=== PATIENT | male | born 1975 | race Caucasian/White ===

== ENCOUNTER 2021-03-11 17:41 | Emergency (ER) | payer OTHER ==
[~2021-03-11 17:41] MED LIST: AMOXICILLIN500 MG PO; CLEOCIN300 MG PO; NAPROSYN375 MG PO; NAPROXEN500 MG PO
[2021-03-11] MEDS ORDERED: AUGMENTIN 875-1 EACH PO (20:02)
== END 2021-03-11 20:25 | disposition home or self-care (01) ==
LOC: FER 17:41
DX: K04.7 Periapical abscess without sinus (principal)
CPT/HCPCS: 99282

== ENCOUNTER 2022-02-06 15:47 | Emergency (ER) | payer OTHER ==
[~2022-02-06 15:47] MED LIST changes: +AUGMENTIN 875-1 EACH PO
[2022-02-06 17:59] LABS: BASOPHIL 0.4 % (0-2); EOSINOPHIL 0 % (0-5); HCT 51.2 % (42.0-52.0); HGB 18.2 g/dl (13.2-18.0); LYMPHOCYTE 2.6 % (15-48); MCH 30.2 pg (25.0-31.0); MCHC 35.5 g/dL (32.0-36.0); MONOCYTE 5.8 % (0-12); MPV 9.8 fL (6.0-9.5); NRBC 0; PLT 171 K/uL (150-400); RBC 6.02 M/uL (4.70-6.00); RDW 12.1 % (11.5-14.0); WBC 9.2 K/uL (4.0-10.5)
[2022-02-06 18:04] LABS: NEUTROPHIL 90.3 % (41-80)
[2022-02-06 18:21] LABS: LACTIC ACID 3.2 mmol/L (0.4-1.9)
[2022-02-06 18:48] LABS: ALBUMIN 4.5 g/dL (3.4-5.0); ALKALINE PHOSHATASE 109 U/L (46-116); ALT 135 U/L (16-63); AST 123 U/L (15-37); BILIRUBIN - TOTAL 0.8 mg/dL (0.2-1.0); BUN 10 mg/dL (7-18); BUN/CREAT RATIO (CALC) 10.8 RATIO; CHLORIDE 93 mmol/L (98-107); CO2 (BICARBONATE) 22 mmol/L (21-32); CREATININE 0.93 mg/dL (0.67-1.17); GLOBULIN (CALCULATION) 3.8 g/dL; GLUCOSE 287 mg/dL (74-106); LIPASE <10 U/L (73-393); TOTAL PROTEIN 8.3 g/dL (6.4-8.2)
[2022-02-06 19:41] LABS: BILIRUBIN NEGATIVE (NEGATIVE); BLOOD NEGATIVE Ery/uL (NEGATIVE); CLARITY CLEAR (CLEAR); COLOR YELLOW (YELLOW); GLUCOSE (U) 3+ mg/dL (NORMAL); LEUKOCYTES NEGATIVE Leu/uL (NEGATIVE); NITRITE NEGATIVE (NEGATIVE); PROTEIN NEGATIVE (NEGATIVE); SPECIFIC GRAVITY 1.015 (1.001-1.030); UROBILINOGEN 0.2 mg/dL (0.2-1.0)
[2022-02-06 19:47] LABS: AMPHETAMINES NEGATIVE (NEGATIVE); BARBITURATES NEGATIVE (NEGATIVE); ECSTASY (MDMA) NEGATIVE (NEGATIVE); MARIJUANA (THC) POSITIVE (NEGATIVE); METHADONE NEGATIVE (NEGATIVE); OPIATES NEGATIVE (NEGATIVE); OXYCODONE NEGATIVE (NEGATIVE)
[2022-02-06] MEDS ORDERED: PREDNISONE 20MG20 MG PO (20:47)
[2022-02-06] MEDS ORDERED: ONDANSETRON ODT4 MG PO (20:47)
[2022-02-06] MEDS ORDERED: PHENERGAN25 M1 PO (20:47)
== END 2022-02-06 21:35 | disposition home or self-care (01) ==
LOC: FER 15:47
PROVIDERS: Emergency Medicine
DX: U07.1 COVID-19 (principal)
CPT/HCPCS: 36415; 80053; 80305; 81003; 83605; 83690; 85025; J1100; J2405; J2543; J2550; J7030; Q9967; U0002